=== PATIENT | male | born 1980 | race Caucasian/White ===

== ENCOUNTER 2019-10-02 23:23 | Emergency (ER) | payer MEDICAID ==
[~2019-10-02] VITALS: Ht 175.3 cm; Wt 74.8 kg
[2019-10-03 00:02] VITALS: BP 120/84
--- NOTE | 2019-10-03 00:02 | NUR ---
PT AAOX4. AMBULATORY. C/O GEN BODY PAIN, WEAKNESS, COUGH & CONGESTION X3 DAYS. PLACED ON MONITOR AND PULSE OX. NO ACUTE DISTRESS NOTED.
--- NOTE | 2019-10-03 00:54 | NUR ---
MEAL PROVIDED TO PT. PT SIGNED HOMELESS WAIVER. Patient discharged to home in stable condition. Written and verbal after care instructions given. Patient verbalizes understanding of instruction. PT ambulatory with a steady gait.
== END 2019-10-03 01:12 | disposition home or self-care (01) ==
LOC: ER 23:26
DX: R53.1 Weakness (principal)

== ENCOUNTER 2022-04-01 19:21 | Emergency (ER) | payer MEDICAID, OTHER ==
[~2022-04-01] VITALS: Ht 175.3 cm; Wt 68.0 kg
--- NOTE | 2022-04-01 19:41 | NUR ---
TO ER BED 12. [id number] FRM SOCALVN C/O CHEST PAIN STARTING 30 MIN AGO PAIN 8/10 ON P/S, ASPIRIN 325 GIVEN, REFUSED NITRO. AAOX4. AMBULATORY. BREATHING IS EVEN AND NON LABORED. CONNECTED TO MONITOR. VSS. AWAITING MD OZUNA
--- NOTE | 2022-04-01 19:59 | NUR ---
EMT AT BEDSIDE FOR EKG
--- NOTE | 2022-04-01 20:03 | NUR ---
XRAY AT BEDSIDE
[2022-04-01 20:17] LABS: BASOPHILS # (AUTO) 0.1 K/uL (0.0-0.2); BASOPHILS % (AUTO) 0.5 % (0.0-2.0); EOSINOPHILS % (AUTO) 2.1 % (0.0-6.0); HEMATOCRIT 37 % (39-51); HEMOGLOBIN 11.8 g/dL (13.5-17.5); LYMPHOCYTES # (AUTO) 4.3 K/uL (0.8-4.8); LYMPHOCYTES % (AUTO) 36.8 % (20.0-44.0); MEAN CORPUSCULAR HGB CONC 32 g/dl (31.0-36.0); MEAN CORPUSCULAR VOLUME 77 fL (80-96); MONOCYTES % (AUTO) 8.6 % (2.0-12.0); NEUTROPHILS # (AUTO) 6.1 K/uL (1.8-8.9); PLATELET COUNT (AUTO) 317 K/uL (150-450); RED BLOOD CELL COUNT(AUTO) 4.83 MIL/uL (4.5-6.0); WHITE BLOOD COUNT (AUTO) 11.7 K/uL (4.3-11.0)
[2022-04-01 20:46] LABS: ALANINE AMINOTRANSFERASE 32 U/L (12-78); ALKALINE PHOSPHATASE 71 U/L (46-116); ASPARTATE AMINOTRANSFERASE 25 U/L (15-37); BILIRUBIN,TOTAL 0.2 mg/dL (0.2-1.0); CALCIUM, SERUM 8.6 mg/dL (8.5-10.1); CARBON DIOXIDE 31 mmol/L (21-32); CHLORIDE 106 mmol/L (98-107); GLUCOSE 138 mg/dL (74-106); POTASSIUM 4.9 mmol/L (3.5-5.1); SODIUM SERUM 140 mmol/L (136-145); TOTAL PROTEIN, SERUM 8.1 g/dL (6.4-8.2); UREA NITROGEN, BLOOD 24 mg/dL (7-18)
[2022-04-01] MEDS ORDERED: IBUPROFEN 600 MG TABLET PO ONE (23:00)
[2022-04-01] MEDS ORDERED: IBUPROFEN 600 MG TABLET ONE (23:01)
--- NOTE | 2022-04-02 05:36 | NUR ---
PT SLEEPING COMOFRTABLY BREATHING EVEN AND UNLABORED EASILY AROUSABLE TO TOUCH AND NAME. CALL LIGHT WITHIN REACH AND ABLE TO MAKE NEEDS KNOWN.
--- NOTE | 2022-04-02 06:43 | NUR ---
PT WILL BE TRANSPORTED AT 0830 TO [facility].
--- NOTE | 2022-04-02 06:44 | NUR ---
REPORT GIVEN TO ARCHANA ROPER
[2022-04-02 09:56] VITALS: BP 120/66
--- NOTE | 2022-04-02 09:57 | NUR ---
Patient discharged to [facility] in stable condition. EMT at bedside. Written and verbal after care instructions given. Patient verbalizes understanding of instruction.
== END 2022-04-02 09:57 ==
LOC: ER 19:37
DX: R07.89 Other chest pain (principal); R94.31 Abnormal electrocardiogram [ECG] [EKG]; F15.10 Other stimulant abuse, uncomplicated
CPT/HCPCS: 36415; 71045-TC; 80048-TC; 80076-TC; 83880; 84484-TC; 85025-TC

== ENCOUNTER 2022-04-02 13:09 | Emergency (ER) | payer OTHER ==
[~2022-04-02] VITALS: Ht 175.3 cm; Wt 68.0 kg
--- NOTE | 2022-04-02 13:22 | NUR ---
BIB [facility] FOR PERSISTENT CHEST PAIN SINCE YESTERDAY,DISCHARGED THIS MORNING FOR ATYPICAL CHEST PAIN,TO ER 11,EKG,MONITOR APPLIED,AWAITING MD OZUNA
[2022-04-02] MEDS ORDERED: LORAZEPAM INJ 2 MG/ML VIAL IM ONE (13:30)
[2022-04-02] MEDS ORDERED: diphenhydrAMINE HCL 50 MG/ML VIAL IM ONE (13:30)
[2022-04-02] MEDS ORDERED: KETOROLAC TROMETHAMINE INJ 30 MG/ML VIAL IM ONE (13:30)
[2022-04-02] MEDS ORDERED: KETOROLAC TROMETHAMINE 15 MG/ML VIAL ONE (13:33)
[2022-04-02] MEDS ORDERED: diphenhydrAMINE HCL 50 MG/ML VIAL ONE (13:33)
[2022-04-02] MEDS ORDERED: LORAZEPAM INJ 2 MG/ML VIAL ONE (13:34)
--- NOTE | 2022-04-02 13:37 | NUR ---
CALLED [facility] INTAKE PER LAUREN: WILL CONTACT [facility] ABOUT GETTING PT BACK TO [facility] AND CALL US BACK.
--- NOTE | 2022-04-03 07:40 | NUR ---
PT RESTING COMFORTABLY IN BED, VSS.
--- NOTE | 2022-04-03 10:49 | NUR ---
Faxed clinicals to [facility] / [facility] [fax: [phone]]. Waiting for labs.
[2022-04-03 11:13] LABS: BASOPHILS % (AUTO) 0.4 % (0.0-2.0); EOSINOPHILS % (AUTO) 2.7 % (0.0-6.0); HEMATOCRIT 38 % (39-51); HEMOGLOBIN 12.3 g/dL (13.5-17.5); LYMPHOCYTES # (AUTO) 2.9 K/uL (0.8-4.8); LYMPHOCYTES % (AUTO) 31.7 % (20.0-44.0); MEAN CORPUSCULAR HGB CONC 32 g/dl (31.0-36.0); MEAN CORPUSCULAR VOLUME 77 fL (80-96); MONOCYTES # (AUTO) 0.9 K/uL (0.1-1.30); MONOCYTES % (AUTO) 9.6 % (2.0-12.0); NEUTROPHILS # (AUTO) 5.1 K/uL (1.8-8.9); NEUTROPHILS % (AUTO) 55.6 % (43.0-81.0); PLATELET COUNT (AUTO) 336 K/uL (150-450); RED BLOOD CELL COUNT(AUTO) 5.01 MIL/uL (4.5-6.0); WHITE BLOOD COUNT (AUTO) 9.2 K/uL (4.3-11.0)
[2022-04-03 12:14] LABS: CALCIUM, SERUM 8.4 mg/dL (8.5-10.1); CARBON DIOXIDE 32 mmol/L (21-32); CHLORIDE 102 mmol/L (98-107); CREATININE 1.2 mg/dL (0.6-1.3); GLUCOSE 115 mg/dL (74-106); POTASSIUM 4.1 mmol/L (3.5-5.1); SODIUM SERUM 137 mmol/L (136-145); UREA NITROGEN, BLOOD 19 mg/dL (7-18)
[2022-04-03 12:21] LABS: ALANINE AMINOTRANSFERASE 36 U/L (12-78); ALBUMIN 3.3 g/dL (3.4-5.0); ALKALINE PHOSPHATASE 70 U/L (46-116); ASPARTATE AMINOTRANSFERASE 37 U/L (15-37); BILIRUBIN,DIRECT 0.1 mg/dL (0.0-0.2); BILIRUBIN,TOTAL 0.3 mg/dL (0.2-1.0); TOTAL PROTEIN, SERUM 8.6 g/dL (6.4-8.2)
[2022-04-03] MEDS ORDERED: diphenhydrAMINE HCL 50 MG CAPSULE ONE (12:23)
[2022-04-03] MEDS ORDERED: diphenhydrAMINE HCL 25 MG CAPSULE PO ONE (12:30)
[2022-04-03 12:36] LABS: ACETAMINOPHEN < 2 ug/ml (10-30); ALCOHOL, BLOOD < 3 mg/dL (0-0)
--- NOTE | 2022-04-03 15:10 | NUR ---
Call from [facility] - will merchandise pickup/receiving associate the patient at 1530 PM.
--- NOTE | 2022-04-03 15:56 | NUR ---
CALLED [facility] REGARDING PT TRANSPORT ETA 1899
--- NOTE | 2022-04-03 20:05 | NUR ---
Patient discharged to [facility] in stable condition via [facility]. Written and verbal after care instructions given. Patient verbalizes understanding of instruction.
[2022-04-03 21:01] VITALS: BP 115/71
== END 2022-04-03 20:05 ==
LOC: ER 13:10
DX: R07.9 Chest pain, unspecified (principal); F15.10 Other stimulant abuse, uncomplicated; R94.31 Abnormal electrocardiogram [ECG] [EKG]; Z20.822 Contact with and (suspected) exposure to COVID-19; I45.10 Unspecified right bundle-branch block
CPT/HCPCS: 36415; 80048; 80076; 80143; 80320; 85025; 87426; 93005; 96372 ×2; 99285; C9803; J1200; J1885; J2060; Q0163; G0480

== ENCOUNTER 2024-01-01 21:54 | Emergency (ER) | payer OTHER ==
[~2024-01-01] VITALS: Ht 165.1 cm; Wt 68.0 kg
[~2024-01-01 21:54] MED LIST: PERM59LI TP; PERM60CR4 TP
[2024-01-01 22:47] LABS: BASOPHILS # (AUTO) 0.5 K/uL (0.0-0.2); BASOPHILS % (AUTO) 3.4 % (0.0-2.0); EOSINOPHILS # (AUTO) 0.1 K/uL (0.0-0.7); EOSINOPHILS % (AUTO) 0.9 % (0.0-6.0); HEMATOCRIT 42 % (39-51); HEMOGLOBIN 13.7 g/dL (13.5-17.5); LYMPHOCYTES # (AUTO) 2.3 K/uL (0.8-4.8); LYMPHOCYTES % (AUTO) 16.6 % (20.0-44.0); MEAN CORPUSCULAR HEMOGLOBIN 27 PG (26.0-33.0); MEAN CORPUSCULAR HGB CONC 33 g/dl (31.0-36.0); MEAN CORPUSCULAR VOLUME 82 fL (80-96); MONOCYTES # (AUTO) 0.9 K/uL (0.1-1.30); MONOCYTES % (AUTO) 6.6 % (2.0-12.0); NEUTROPHILS % (AUTO) 72.5 % (43.0-81.0); PLATELET COUNT (AUTO) 368 K/uL (150-450); RED BLOOD CELL COUNT(AUTO) 5.15 MIL/uL (4.5-6.0); RED CELL DISTRIBUTION WIDTH 13.7 % (11.5-15.0); WHITE BLOOD COUNT (AUTO) 13.8 K/uL (4.3-11.0)
[2024-01-01 22:58] LABS: CALCIUM, SERUM 8.3 mg/dL (8.5-10.1); CARBON DIOXIDE 26 mmol/L (21-32); CHLORIDE 101 mmol/L (98-107); CREATININE 1.2 mg/dL (0.6-1.3); GLUCOSE 109 mg/dL (74-106); SODIUM SERUM 133 mmol/L (136-145); UREA NITROGEN, BLOOD 24 mg/dL (7-18)
[2024-01-02 00:45] VITALS: BP 149/97; TEMP 98.7; O2SAT 100
== END 2024-01-02 00:46 | disposition home or self-care (01) ==
LOC: ER 21:55
DX: R07.9 Chest pain, unspecified (principal); F41.9 Anxiety disorder, unspecified; F15.10 Other stimulant abuse, uncomplicated
CPT/HCPCS: 36415; 71045-TC; 80048-TC; 84484-TC; 85025-TC